=== PATIENT | female | born 1990 | race Caucasian/White ===

== ENCOUNTER 2016-12-05 09:41 | Emergency (ER) | payer MEDICAID, OTHER ==
[2016-12-05 09:44] VITALS: BMI 23.0
[2016-12-05 09:48] VITALS: TEMP 97.6; O2SAT 100
--- NOTE | 2016-12-05 10:50 | ED PDOC ---
Arrival/HPI - General Chief Complaint: Flu-like Symptoms Time Seen by Provider: 12/05/16 10:47 Historian: Patient - History of Present Illness Narrative History of Present Illness (Text): 12/05/16 10:47 This 26 yo female presents to this ED c/o body aches, cough x 2 weeks. She also noted intermittent subjective fever x 1 week. Patient denies urinary symptoms, sob, wheezing, HOLT, rash, sick contact, or vaginal discharge. Time/Duration: Other (2 weeks) Context: Home Past Medical History - Provider Review Nursing Documentation Reviewed: Yes - Past History Past History: Non-Contributing - Infectious Disease Hx of Infectious Diseases: None - Cardiac Hx Cardiac Disorders: No Hx Angina: No - Pulmonary Hx Respiratory Disorders: Yes Hx Asthma: Yes - Neurological Hx Neurological Disorder: No - HEENT Hx HEENT Disorder: No - Renal Hx Renal Disorder: No - Endocrine/Metabolic Hx Endocrine Disorders: No - Hematological/Oncological Hx Blood Disorders: Yes Hx Anemia: Yes - Integumentary Hx Dermatological Disorder: No - Musculoskeletal/Rheumatological Hx Musculoskeletal Disorders: No - Gastrointestinal Hx Gastrointestinal Disorders: No - Genitourinary/Gynecological Hx Genitourinary Disorders: No - Psychiatric Hx Psychophysiologic Disorder: No Hx Substance Use: No - Anesthesia Hx Anesthesia: No Family/Social History - Physician Review Nursing Documentation Reviewed: Yes Family/Social History: No Known Family HX Smoking Status: Former Smoker Hx Alcohol Use: No Hx Substance Use: No Allergies/Home Meds Allergies/Adverse Reactions: Allergies ibuprofen Allergy (Verified 12/05/16 09:44) URTICARIA Penicillins Allergy (Verified 12/05/16 09:44) ANAPHYLAXIS seafood Allergy (Uncoded 12/05/16 09:44) ANAPHYLAXIS Home Medications: Home Meds Medication Instructions Recorded Confirmed Ferrous Sulfate [Ferrous Sulfate] 325 mg PO TID 12/05/16 12/05/16 Review of Systems - Review of Systems Constitutional: Fevers. absent: Fatigue, Weight Change Eyes: Normal. absent: Photophobia, Eye Pain ENT: Normal. absent: Hearing Changes, Sore Throat, Rhinorrhea Respiratory: Cough. absent: SOB, Sputum, Wheezing Cardiovascular: Normal. absent: Chest Pain, Palpitations Gastrointestinal: Normal. absent: Abdominal Pain, Nausea, Vomiting Genitourinary Female: Normal. absent: Dysuria, Frequency, Hematuria, Urine Output Changes, Vaginal Bleeding, Vaginal Discharge Musculoskeletal: Myalgias. absent: Arthralgias, Back Pain, Neck Pain Skin: Normal. absent: Rash Neurological: Normal. absent: Headache, Dizziness, Focal Weakness, Gait Changes , Speech Changes, Facial Droop, Disequilibrium Endocrine: Normal Hemo/Lymphatic: Normal Psychiatric: Normal Physical Exam Vital Signs Temp Pulse Resp BP Pulse Ox 12/05/16 09:45 97.6 F 73 15 108/40 L 100 Temperature: Afebrile Blood Pressure: Normal Pulse: Regular Respiratory Rate: Normal Appearance: Positive for: Well-Appearing, Non-Toxic, Comfortable Pain Distress: None Mental Status: Positive for: Alert and Oriented X 3 - Systems Exam Head: Present: Atraumatic, Normocephalic Pupils: Present: PERRL Extroacular Muscles: Present: EOMI Conjunctiva: Present: Normal Mouth: Present: Moist Mucous Membranes Pharnyx: Present: Normal. No: ERYTHEMA, EXUDATE, TONSILS ENLARGED Neck: Present: Normal Range of Motion Respiratory/Chest: Present: Clear to Auscultation, Good Air Exchange. No: Respiratory Distress, Accessory Muscle Use, Wheezes, Decreased Breath Sounds, Rales, Retracting, Rhonchi, Tachypneic, Tender to Palpation Cardiovascular: Present: Regular Rate and Rhythm, Normal S1, S2. No: Murmurs Abdomen: Present: Normal Bowel Sounds. No: Tenderness, Distention, Peritoneal Signs Back: Present: Normal Inspection. No: CVA Tenderness Upper Extremity: Present: Normal Inspection, Normal ROM, NORMAL PULSES, Neurovascularly Intact, Capillary Refill < 2s. No: Cyanosis, Edema Lower Extremity: Present: Normal Inspection, NORMAL PULSES, Normal ROM, Temperature Abnormalties, Neurovascularly Intact, Capillary Refill < 2 s. No: Edema, CALF TENDERNESS Neurological: Present: GCS=15, CN II-XII Intact, Speech Normal, Motor Func Grossly Intact, Normal Sensory Function, Normal Cerebellar Funct, Gait Normal Skin: Present: Warm, Dry, Normal Color. No: Rashes Psychiatric: Present: Alert, Oriented x 3, Normal Insight, Normal Concentration Medical Decision Making ED Course and Treatment: 12/05/16 10:50 Re-evaluation. Patient feels better. Discussed results and plan with patient who expresses understanding. All questions answered and there is agreement with the plan to discharge home with instructions. Patient stable for discharge. Return if symptoms persist or worsen. Re-evaluation Time: 10:50 Reassessment Condition: Re-examined, Improved Disposition/Present on Arrival - Present on Arrival Any Indicators Present on Arrival: No History of DVT/PE: No History of Uncontrolled Diabetes: No Urinary Catheter: No History of Decub. Ulcer: No History Surgical Site Infection Following: None - Disposition Have Diagnosis and Disposition been Completed?: Yes Diagnosis: Upper respiratory infection Disposition: HOME/ ROUTINE Disposition Time: 10:51 Patient Plan: Discharge Condition: GOOD Discharge Instructions (ExitCare): Upper Respiratory Infection (ED) Additional Instructions: Call private doctor for follow up visit in 1-2 days. Take medication as instructed. return to emergency if symptoms worsen. Prescriptions: Clarithromycin [Biaxin Filmtab] 500 mg PO BID #14 tab Promethazine/Codeine [Codeine/Promethazine 10 MG/5 Ml-6.25 MG/5 Ml] 5 ml PO Q4H PRN #120 ml PRN Reason: Cough Referrals: [facility] [Outside] - Follow up with primary Forms: WORK NOTE
[2016-12-05 11:02] VITALS: BP 111/56; PULSE 69; RESP 18
== END 2016-12-05 11:19 | disposition home or self-care (01) ==
LOC: ED 09:41
DX: J06.9 Acute upper respiratory infection, unspecified (principal); Z87.891 Personal history of nicotine dependence

== ENCOUNTER 2017-06-05 10:42 | Emergency (ER) | payer OTHER ==
[2017-06-05 10:49] VITALS: RESP 18; O2SAT 99
[2017-06-05 10:52] VITALS: BMI 22.6
--- NOTE | 2017-06-05 11:18 | ED PDOC ---
Arrival/HPI - General Chief Complaint: Chest Pain Time Seen by Provider: 06/05/17 11:05 Historian: Patient - History of Present Illness Narrative History of Present Illness (Text): 06/05/17 11:00 Renate Singer is a 27 year old female, whose past medical history includes asthma , anemia, and scoliosis, presents to the emergency department complaining of sharp chest pain that radiates to her back since yesterday. Patient reports recently she has been dealing with mild stress from her job, and admits to mild heavy lifting. Patient denies any cough, nausea, vomiting, abdominal pain, headache, shortness of breath, or other complaints. PMD: Dr. Mayelin Johnson Time/Duration: 24 hours Symptom Onset: Gradual Symptom Course: Unchanged Quality: Other (sharp chest pain ) Activities at Onset: Light Past Medical History - Provider Review Nursing Documentation Reviewed: Yes - Past History Past History: Non-Contributing - Infectious Disease Hx of Infectious Diseases: None - Cardiac Hx Cardiac Disorders: No Hx Angina: No - Pulmonary Hx Respiratory Disorders: Yes Hx Asthma: Yes - Neurological Hx Neurological Disorder: No - HEENT Hx HEENT Disorder: No - Renal Hx Renal Disorder: No - Endocrine/Metabolic Hx Endocrine Disorders: No - Hematological/Oncological Hx Blood Disorders: Yes Hx Anemia: Yes Hx Blood Transfusions: Yes Hx Blood Transfusion Reaction: No - Integumentary Hx Dermatological Disorder: No - Musculoskeletal/Rheumatological Hx Musculoskeletal Disorders: No - Gastrointestinal Hx Gastrointestinal Disorders: No - Genitourinary/Gynecological Hx Genitourinary Disorders: No - Psychiatric Hx Psychophysiologic Disorder: No Hx Substance Use: No - Anesthesia Hx Anesthesia: No Family/Social History - Physician Review Nursing Documentation Reviewed: Yes Family/Social History: Unknown Family HX Smoking Status: Former Smoker Hx Alcohol Use: No Hx Substance Use: No Allergies/Home Meds Allergies/Adverse Reactions: Allergies ibuprofen Allergy (Verified 06/05/17 10:44) URTICARIA Penicillins Allergy (Verified 06/05/17 10:44) ANAPHYLAXIS seafood Allergy (Uncoded 06/05/17 10:44) ANAPHYLAXIS Review of Systems - Review of Systems Constitutional: absent: Fevers Respiratory: absent: SOB, Cough Cardiovascular: Chest Pain (sharp chest pain ) Musculoskeletal: Back Pain (left sided) Neurological: absent: Headache Physical Exam Vital Signs Reviewed: Yes Vital Signs Temp Pulse Resp BP Pulse Ox 06/05/17 12:23 98.5 F 69 18 101/68 99 06/05/17 12:16 69 18 101/68 99 06/05/17 10:47 97.9 F 72 18 98/64 L 99 Temperature: Afebrile Blood Pressure: Hypertensive Pulse: Regular Respiratory Rate: Normal Appearance: Positive for: Well-Appearing, Non-Toxic, Comfortable Pain Distress: None Mental Status: Positive for: Alert and Oriented X 3 - Systems Exam Head: Present: Atraumatic, Normocephalic Pupils: Present: PERRL Extroacular Muscles: Present: EOMI Conjunctiva: Present: Normal Mouth: Present: Moist Mucous Membranes Neck: Present: Normal Range of Motion. No: MIDLINE TENDERNESS, JVD Respiratory/Chest: Present: Clear to Auscultation, Good Air Exchange, Tender to Palpation (anterior chest wall tenderness). No: Respiratory Distress, Accessory Muscle Use Cardiovascular: Present: Regular Rate and Rhythm, Normal S1, S2. No: Murmurs Abdomen: Present: Normal Bowel Sounds. No: Tenderness, Distention, Peritoneal Signs Back: Present: Paraspinal Tenderness (paraspinal thoracic tenderness). No: CVA Tenderness, Midline Tenderness Upper Extremity: Present: Normal Inspection. No: Cyanosis, Edema Lower Extremity: Present: Normal Inspection. No: Edema Neurological: Present: GCS=15, CN II-XII Intact, Speech Normal Skin: Present: Warm, Dry, Normal Color. No: Rashes Psychiatric: Present: Alert, Oriented x 3, Normal Insight, Normal Concentration Medical Decision Making ED Course and Treatment: 06/05/17 Impression: 27 year old female with anterior chest wall tenderness and paraspinal thoracic tenderness Differential Diagnosis included but are not limited to: costochondritis Plan: -- EKG -- Chest X-ray -- Flexeril vs. Tylenol -- Reassess and disposition Progress Notes: EKG: Ordered, reviewed, and independently interpreted the EKG. Rate : 61 BPM Rhythm : NSR Interpretation : No ST-segment elevations or depressions, no T-wave inversions, normal intervals. 06/05/17 12:15 Reevaluation: Chest X-ray: NAD. Normal. On reevaluation the patient feels better and is in no acute distress. I have discussed the results and plan with the patient, who expresses understanding. Patient given the opportunity to ask question, all questions were answered and there is agreement with the plan to discharge the patient home. Patient is stable for discharge. Patient states she will follow up with PMD in 1-2 days or return if symptoms persist/worsen or new concerning symptoms arise. - RAD Interpretation Radiology Orders: 06/05/17 11:13 CHEST TWO VIEWS (PA/LAT) [RAD] Stat Staff Technologist: ED Physician - EKG Interpretation Interpreted by ED Physician: Yes Type: 12 lead EKG - Medication Orders Current Medication Orders: Discontinued Medications Acetaminophen (Tylenol 325mg Tab) 650 mg PO STAT STA Stop: 06/05/17 11:15 Last Admin: 06/05/17 11:22 Dose: 650 mg MAR Pain/Vitals Document 06/05/17 11:22 IT (Rec: 06/05/17 11:23 IT [id number]) Pain Reassessment Is This A Pain ReAssessment? No Sleep Is patient sleeping during reassessment? No Presence of Pain Presence of Pain Yes Pain Scale Used Pain Scale Used Numeric Location Left, Right or Bilateral Left Pain Location Body Site chest, shoulder, neck Cyclobenzaprine HCl (Flexeril) 5 mg PO STAT STA Stop: 06/05/17 11:14 Last Admin: 06/05/17 11:22 Dose: 5 mg - Scribe Statement The provider has reviewed the documentation as recorded by the Mone Mccann Provider Scribe Attestation: All medical record entries made by the Scribe were at my direction and personally dictated by me. I have reviewed the chart and agree that the record accurately reflects my personal performance of the history, physical exam, medical decision making, and the department course for this patient. I have also personally directed, reviewed, and agree with the discharge instructions and disposition. Disposition/Present on Arrival - Present on Arrival Any Indicators Present on Arrival: No History of DVT/PE: No History of Uncontrolled Diabetes: No Urinary Catheter: No History of Decub. Ulcer: No History Surgical Site Infection Following: None - Disposition Have Diagnosis and Disposition been Completed?: Yes Diagnosis: Chest pain Disposition: HOME/ ROUTINE Disposition Time: 12:15 Patient Plan: Discharge Condition: IMPROVED Discharge Instructions (ExitCare): Chest Pain (ED) Additional Instructions: Ms Singer, thank you for letting us take care of you today. Your provider was Dr. Menjivar. You were treated for Chest Pain. The emergency medical care you received today was directed at your acute symptoms. If you were prescribed any medication, please fill it and take as directed. It may take several days for your symptoms to resolve. Return to the Emergency Department if your symptoms worsen, do not improve, or if you have any other problems. Please contact your doctor or call one of the physicians/clinics you have been referred to that are listed on the Patient Visit Information form that is included in your discharge packet. Bring any paperwork you were given at discharge with you along with any medications you are taking to your follow up visit. Our treatment cannot replace ongoing medical care by a primary care provider (PCP) outside of the emergency department. Thank you for allowing the [facility] team to be part of your care today. If you had an X-Ray or CT scan: A Radiologist will review the ED reading if any change in treatment is needed we will contact you. If you had a blood, urine, or wound culture: It will take several days for the results, if any change in treatment is needed we will contact you. If you had an STI test: It will take 48 hours for the results. Please call after 1 week if you have not heard back. Prescriptions: Cyclobenzaprine HCl 5 mg PO Q8 PRN #20 tablet PRN Reason: Muscle Spasm Referrals: Huseyin Johnson MD [Primary Care Provider] - Follow up with primary Forms: [employer] (Persian), WORK NOTE
[2017-06-05 12:16] VITALS: BP 101/68; PULSE 69
[2017-06-05 12:25] VITALS: TEMP 98.5
--- NOTE | 2017-06-05 13:14 | RAD ---
HISTORY: pain r/o ptx r/o pna COMPARISON: No prior. TECHNIQUE: Chest PA and lateral FINDINGS: LUNGS: No active pulmonary disease. PLEURA: No significant pleural effusion identified. No pneumothorax apparent. CARDIOVASCULAR: Normal. OSSEOUS STRUCTURES: No significant abnormalities. VISUALIZED UPPER ABDOMEN: Normal. OTHER FINDINGS: None. IMPRESSION: No active disease.
--- NOTE | 2017-06-06 08:16 | CARD ---
APPROVED REPORT EKG Measurement Heart [id number] <Conclusion> Normal sinus rhythm Normal ECG
== END 2017-06-05 12:24 | disposition home or self-care (01) ==
LOC: ED 10:42
DX: R07.9 Chest pain, unspecified (principal); J45.909 Unspecified asthma, uncomplicated; Z87.891 Personal history of nicotine dependence

== ENCOUNTER 2018-03-18 09:50 | Emergency (ER) | payer MEDICAID, OTHER ==
[2018-03-18 10:04] VITALS: RESP 18; TEMP 98.5; O2SAT 99; BMI 22.2
[2018-03-18] MEDS ORDERED: Sodium Chloride 0.9% 1,000 ML IV STA (10:07)
[2018-03-18 10:22] LABS: URINE BILIRUBIN NEGATIVE (NEGATIVE); URINE BLOOD NEGATIVE (NEGATIVE); URINE GLUCOSE (UA) NEGATIVE (NEGATIVE); URINE LEUKOCYTE ESTERASE TRACE Leu/uL (NEGATIVE); URINE PROTEIN NEGATIVE mg/dL (<30 mg/dL); URINE UROBILINOGEN 0.2 E.U./dL (<1 E.U./dL)
[2018-03-18 10:24] LABS: URINE APPEARANCE CLEAR (CLEAR); URINE COLOR YELLOW (YELLOW)
[2018-03-18 10:39] LABS: URINE BACTERIA FEW (NEG); URINE RBC NEGATIVE /hpf (0-2); URINE WBC 0 - 2 /hpf (0-6)
--- NOTE | 2018-03-18 10:40 | ED PDOC ---
Arrival/HPI - History of Present Illness Time/Duration: > month Symptom Course: Unchanged Activities at Onset: Rest Context: Home <Bobby Torres - Last Filed: 03/18/18 11:48> <Justin Jama DO - Last Filed: 03/18/18 17:17> - General Time Seen by Provider: 03/18/18 09:54 - History of Present Illness Narrative History of Present Illness (Text): 03/18/18 10:35 This is a 28 year old female with PMH of scoliosis, asthma and anemia presenting to the ED for one month history of dizziness, weakness, hair loss, sore throat, difficulty swallowing, and bones hurting. Patient saw her PMD one month ago for symptoms, and thyroid tests at that time was normal. She was scheduled for repeat thyroid blood work today, but came into the ED due to worsening symptoms today. Denies chest pain, fevers, nausea, vomiting, abdominal pain, sick contacts at home and recent travel. (Bobby Torres) Past Medical History - Provider Review Nursing Documentation Reviewed: Yes - Past History Past History: Non-Contributing - Infectious Disease Hx of Infectious Diseases: None - Reproductive Menopause: No - Cardiac Hx Cardiac Disorders: No Hx Angina: No - Pulmonary Hx Respiratory Disorders: Yes Hx Asthma: Yes - Neurological Hx Neurological Disorder: No - HEENT Hx HEENT Disorder: No - Renal Hx Renal Disorder: No - Endocrine/Metabolic Hx Endocrine Disorders: No - Hematological/Oncological Hx Blood Disorders: Yes Hx Anemia: Yes Hx Blood Transfusions: Yes Hx Blood Transfusion Reaction: No - Integumentary Hx Dermatological Disorder: No - Musculoskeletal/Rheumatological Hx Musculoskeletal Disorders: No - Gastrointestinal Hx Gastrointestinal Disorders: No - Genitourinary/Gynecological Hx Genitourinary Disorders: No - Psychiatric Hx Psychophysiologic Disorder: No Hx Substance Use: No - Anesthesia Hx Anesthesia: No <Bobby Torres - Last Filed: 03/18/18 11:48> Family/Social History - Physician Review Nursing Documentation Reviewed: Yes Family/Social History: Unknown Family HX Smoking Status: Former Smoker Hx Alcohol Use: No Hx Substance Use: No <Bobby Torres - Last Filed: 03/18/18 11:48> Allergies/Home Meds <Bobby Torres - Last Filed: 03/18/18 11:48> <Justin Jama DO - Last Filed: 03/18/18 17:17> Allergies/Adverse Reactions: Allergies ibuprofen Allergy (Verified 03/18/18 10:04) URTICARIA Penicillins Allergy (Verified 03/18/18 10:04) ANAPHYLAXIS seafood Allergy (Uncoded 03/18/18 10:04) ANAPHYLAXIS Review of Systems - Physician Review All systems were reviewed & negative as marked: Yes - Review of Systems Constitutional: Normal. absent: Weight Change, Fevers Eyes: Normal. absent: Photophobia, Eye Pain ENT: Normal, Sore Throat. absent: Hearing Changes Respiratory: Normal. absent: SOB Cardiovascular: Normal. absent: Chest Pain, Palpitations Gastrointestinal: Normal. absent: Abdominal Pain Genitourinary Female: Normal Musculoskeletal: Normal, Other (bone pain). absent: Arthralgias, Joint Swelling Skin: Normal Neurological: Dizziness, Other (weakness). absent: Focal Weakness, Facial Droop Endocrine: Normal Hemo/Lymphatic: Normal Psychiatric: Normal <Bobby Torres - Last Filed: 03/18/18 11:48> Physical Exam Temperature: Afebrile Blood Pressure: Normal Pulse: Regular Respiratory Rate: Normal Appearance: Positive for: Well-Appearing, Non-Toxic, Comfortable Pain Distress: None Mental Status: Positive for: Alert and Oriented X 3 - Systems Exam Head: Present: Atraumatic, Normocephalic Pupils: Present: PERRL Extroacular Muscles: Present: EOMI Conjunctiva: Present: Normal Mouth: Present: Moist Mucous Membranes Neck: Present: Normal Range of Motion, Trachea Midline Respiratory/Chest: Present: Clear to Auscultation, Good Air Exchange. No: Respiratory Distress, Accessory Muscle Use Cardiovascular: Present: Normal S1, S2, Peripheal Pulses Present, Bradycardic. No: Murmurs, Irregular Rhythm Abdomen: Present: Normal Bowel Sounds. No: Tenderness, Distention, Peritoneal Signs Back: Present: Normal Inspection Upper Extremity: Present: Normal Inspection. No: Cyanosis, Edema Lower Extremity: Present: Normal Inspection. No: Edema Neurological: Present: Speech Normal, Motor Func Grossly Intact, Normal Sensory Function Skin: Present: Warm, Dry, Normal Color. No: Rashes Psychiatric: Present: Alert, Oriented x 3, Normal Insight, Normal Concentration <Bobby Torres Last Filed: 03/18/18 11:48> Vital Signs Temp Pulse Resp BP Pulse Ox 03/18/18 11:16 60 18 105/61 99 03/18/18 09:59 98.5 F 80 18 95/63 L 99 Medical Decision Making <Bobby Torres - Last Filed: 03/18/18 11:48> <Justin Jama DO - Last Filed: 03/18/18 17:17> ED Course and Treatment: 03/18/18 10:50 This is a 28 year old female with PMH of scoliosis, anemia and asthma presenting to the ED today for bone pain, dizziness, weakness, and loss of hair for one month. Differential: anemia vs. thyroid abnormality Plan -CBC, CMP -Thyroid - -EKG, troponin -U/A, drug screen Progress: EKG: rate of 52, DC of 138ms, QRS of 80ms, sinus bradycardia. 03/18/18 10:53 (Bobby Torres) Attending followup: Patient feeling better. Labs and imaging reviewed. Patient to be discharged with Rx and followup instructions. (Justin Jama DO) - Lab Interpretations Lab Results: 03/18/18 10:30 03/18/18 10:30 Lab Results 03/18/18 10:30: Total T3 1.30, TSH 3rd Generation 0.78 03/18/18 10:30: Urine Opiates Screen Negative, Urine Methadone Screen Negative, Ur Barbiturates Screen Negative, Ur Phencyclidine Scrn Negative, Ur Amphetamines Screen Negative, U Benzodiazepines Scrn Negative, U Oth Cocaine Metabols Negative, U Cannabinoids Screen Negative 03/18/18 10:30: Sodium 142, Potassium 4.1, Chloride 108 H, Carbon Dioxide 22, Anion Gap 17, BUN 13, Creatinine 0.7, Est GFR ( Amer) > 60, Est GFR (Non- Af Amer) > 60, Random Glucose 83, Calcium 9.0, Magnesium 2.0, Total Bilirubin 0.2, AST 21, ALT 16, Alkaline Phosphatase 69, Lactate Dehydrogenase 395, Total Creatine Kinase 90, Troponin I < 0.01, Total Protein 6.9, Albumin 4.2, Globulin 2.7, Albumin/Globulin Ratio 1.5 03/18/18 10:30: WBC 4.2 L, RBC 4.12, Hgb 12.3, Hct 36.1, MCV 87.6, MCH 29.9, MCHC 34.1, RDW 13.7, Plt Count 274, MPV 9.5, Gran % 42.8 L, Lymph % (Auto) 42.3 H, Prowers % (Auto) 10.3 H, Eos % (Auto) 3.6, Baso % (Auto) 1.0, Gran # 1.78, Lymph # (Auto) 1.8, Prowers # (Auto) 0.4, Eos # (Auto) 0.2, Baso # (Auto) 0.04 03/18/18 10:16: Urine Color Yellow, Urine Appearance Clear, Urine pH 6.0, Ur Specific Lillian 1.025, Urine Protein Negative, Urine Glucose (UA) Negative, Urine Ketones Negative, Urine Blood Negative, Urine Nitrate Negative, Urine Bilirubin Negative, Urine Urobilinogen 0.2, Ur Leukocyte Esterase Trace H, Urine RBC Negative, Urine WBC 0 - 2, Ur Epithelial Cells 6 - 8, Urine Bacteria Few - Medication Orders Current Medication Orders: Discontinued Medications Sodium Chloride (Sodium Chloride 0.9%) 1,000 mls @ 999 mls/hr IV .Q1H1M STA Stop: 03/18/18 11:07 Last Admin: 03/18/18 10:25 Dose: 999 mls/hr eMAR Start Stop Document 03/18/18 10:25 LULU (Rec: 03/18/18 10:32 LULU [id number]) Intravenous Solution Start Date 03/18/18 Start Time 10:30 End Date 03/18/18 End time 11:30 Total Infusion Time 60 - PA / BAG SORTER / Resident Statement ORA has reviewed & agrees with the documentation as recorded. ORA has examined the patient and agrees with the treatment plan. <Bobby Torres - Last Filed: 03/18/18 11:48> Disposition/Present on Arrival - Present on Arrival Any Indicators Present on Arrival: No History of DVT/PE: No History of Uncontrolled Diabetes: No Urinary Catheter: No History of Decub. Ulcer: No History Surgical Site Infection Following: None - Disposition Have Diagnosis and Disposition been Completed?: Yes Disposition Time: 12:00 Patient Plan: Discharge <Bobby Torres - Last Filed: 03/18/18 11:48> - Disposition Disposition Time: 11:40 <Justin Jama DO - Last Filed: 03/18/18 17:17> - Disposition Diagnosis: Generalized weakness Disposition: HOME/ ROUTINE Condition: GOOD Discharge Instructions (ExitCare): Weakness (ED) Additional Instructions: AYSHA WATKINS, thank you for letting us take care of you today. The emergency medical care you received today was directed at your acute symptoms. If you were prescribed any medication, please fill it and take as directed. It may take several days for your symptoms to resolve. Return to the Emergency Department if your symptoms worsen, do not improve, or if you have any other problems. Please contact your doctor or call one of the physicians/clinics you have been referred to that are listed on the Patient Visit Information form that is included in your discharge packet. Bring any paperwork you were given at discharge with you along with any medications you are taking to your follow up visit. Our treatment cannot replace ongoing medical care by a primary care provider outside of the emergency department. Thank you for allowing the [facility] team to be part of your care today. Follow up with your primary doctor this week for re-evaluation and further management. Referrals: Huseyin Johnson MD [Primary Care Provider] - Follow up with primary Forms: WORK NOTE
[2018-03-18 10:53] LABS: BASO # 0.04 K/mm3 (0.0-2.0); EOS # 0.2 (0.0-0.7); EOS % 3.6 % (1.5-5.0); GRAN # 1.78 (1.4-6.5); GRAN % 42.8 % (50.0-68.0); HEMOGLOBIN 12.3 g/dL (12.0-16.0); LYMPH # 1.8 (1.2-3.4); LYMPH % 42.3 % (22.0-35.0); MEAN CELL VOLUME 87.6 fl (80.0-105.0); MEAN CORPUSCULAR HEMOGLOBIN 29.9 pg (25.0-35.0); MEAN CORPUSCULAR HGB CONC 34.1 g/dl (31.0-37.0); MEAN PLATELET VOLUME 9.5 fl (7.0-11.0); MONO # 0.4 (0.1-0.6); MONO % 10.3 % (1.0-6.0); RBC 4.12 10^6/uL (3.5-6.1); RED CELL DISTRIBUTION WIDTH 13.7 % (11.5-14.5); WHITE BLOOD COUNT 4.2 10^3/ul (4.5-11.0)
[2018-03-18 10:58] LABS: ALB/GLOB RATIO 1.5 (1.1-1.8); ALBUMIN 4.2 g/dL (3.0-4.8); ALT/SGPT 16 U/L (7-56); AST/SGOT 21 U/L (14-36); BLOOD UREA NITROGEN 13 mg/dL (7-21); GFR AFRICAN-AMERICAN > 60; GFR NON-AFRICAN AMERICAN > 60
[2018-03-18 11:08] LABS: BARBITURATES, UR NEGATIVE (NEGATIVE); BENZODIAZEPINES, UR NEGATIVE (NEGATIVE); OPIATES, UR NEGATIVE (NEGATIVE); PHENCYCLIDINE, UR NEGATIVE (NEGATIVE)
[2018-03-18 11:15] LABS: TROPONIN I < 0.01 ng/mL
[2018-03-18 11:17] VITALS: BP 105/61; PULSE 60
[2018-03-18 11:39] LABS: T3 1.3 ng/mL (0.97-1.69)
--- NOTE | 2018-03-18 16:36 | CARD ---
APPROVED REPORT Date of service: 03/18/2018 EKG Measurement Heart [id number] <Conclusion> Sinus bradycardia Otherwise normal ECG
== END 2018-03-18 12:05 | disposition home or self-care (01) ==
LOC: ED 09:50
DX: R53.1 Weakness (principal); Z87.891 Personal history of nicotine dependence
CPT/HCPCS: 80053; 80324; 80345; 80346; 80349; 80353; 80358; 80361; 81001; 82550; 83615; 83735; 83992; 84443; 84480; 84484; 85025; 87086; 93005; 96360; 99283; J7030

== ENCOUNTER 2018-06-19 19:38 | Emergency (ER) | payer MEDICAID ==
[2018-06-19 19:41] VITALS: BMI 22.6
[2018-06-19] MEDS ORDERED: DiphenhydrAMINE 50 mg/ml Inj IVP STA (19:48)
[2018-06-19] MEDS ORDERED: Sodium Chloride 0.9% 1,000 ML IV STA (19:48)
--- NOTE | 2018-06-19 19:51 | ED PDOC ---
Arrival/HPI - General Time Seen by Provider: 06/19/18 19:48 Historian: Patient - History of Present Illness Narrative History of Present Illness (Text): 06/19/18 19:48 28 year old female, with past medical history of scoliosis, asthma and anemia, presents to the Emergency Department via EMS complaining of coughing, itchiness to eyes and throat x 2 hours. Patient states she was walking outside when she suddenly began coughing and experienced difficulty breathing associated with itchiness hives prompting her to present to the Emergency Department for medical evaluation of allergic reaction. Patient denies any associated chest pain or shortness of breath. Patient denies any fever, chills, nausea, vomiting, diarrhea, abdominal pain, neck pain, back pain, headache, dizziness or any other complaints. Time/Duration: Prior to Arrival Symptom Onset: Sudden Symptom Course: Unchanged Activities at Onset: Light Context: Street Past Medical History - Provider Review Nursing Documentation Reviewed: Yes - Past History Past History: Non-Contributing - Infectious Disease Hx of Infectious Diseases: None - Cardiac Hx Cardiac Disorders: No Hx Angina: No - Pulmonary Hx Respiratory Disorders: Yes Hx Asthma: Yes - Neurological Hx Neurological Disorder: No - HEENT Hx HEENT Disorder: No - Renal Hx Renal Disorder: No - Endocrine/Metabolic Hx Endocrine Disorders: No - Hematological/Oncological Hx Blood Disorders: Yes Hx Anemia: Yes Hx Blood Transfusions: Yes Hx Blood Transfusion Reaction: No - Integumentary Hx Dermatological Disorder: No - Musculoskeletal/Rheumatological Hx Musculoskeletal Disorders: No - Gastrointestinal Hx Gastrointestinal Disorders: No - Genitourinary/Gynecological Hx Genitourinary Disorders: No - Psychiatric Hx Psychophysiologic Disorder: No Hx Substance Use: No - Anesthesia Hx Anesthesia: No Family/Social History - Physician Review Nursing Documentation Reviewed: Yes Family/Social History: Unknown Family HX Smoking Status: Former Smoker Hx Alcohol Use: No Hx Substance Use: No Allergies/Home Meds Allergies/Adverse Reactions: Allergies ibuprofen Allergy (Verified 03/18/18 10:04) URTICARIA Penicillins Allergy (Verified 03/18/18 10:04) ANAPHYLAXIS seafood Allergy (Uncoded 03/18/18 10:04) ANAPHYLAXIS Review of Systems - Review of Systems Constitutional: absent: Fatigue, Fevers Eyes: Other (+eye itching). absent: Vision Changes ENT: Other (+throat itching). absent: Hearing Changes Respiratory: Cough. absent: SOB Cardiovascular: absent: Chest Pain Gastrointestinal: absent: Abdominal Pain, Nausea, Vomiting Musculoskeletal: absent: Arthralgias, Back Pain Skin: Rash, Pruritis Neurological: absent: Headache, Dizziness Psychiatric: absent: Anxiety, Depression, Suicidal Ideation Physical Exam Vital Signs Reviewed: Yes Temperature: Afebrile Blood Pressure: Normal Pulse: Regular Respiratory Rate: Normal Appearance: Positive for: Well-Appearing, Non-Toxic, Comfortable Pain Distress: None Mental Status: Positive for: Alert and Oriented X 3 - Systems Exam Head: Present: Atraumatic, Normocephalic Pupils: Present: PERRL Extroacular Muscles: Present: EOMI Conjunctiva: Present: Normal, Other (+bilateral conjuntivitis) Ears: Present: NORMAL TM, Normal Canal. No: Erythema Mouth: Present: Moist Mucous Membranes. No: Dry, Drooling Pharnyx: Present: Normal. No: ERYTHEMA, EXUDATE, TONSILS ENLARGED, Peritonsilar Swelling, Uvular Deviation, Muffled/Hoarse Voice, Strider, Soft Palate/Uvular Edema Nose (External): Present: Atraumatic. No: Abrasion, Contusion, Laceration Nose (Internal): Present: Normal Inspection, No Active Bleeding. No: Rhinorrhea, Septal Deviation, Septal Hematoma, Epistaxis Neck: Present: Normal Range of Motion Respiratory/Chest: Present: Clear to Auscultation, Good Air Exchange. No: Respiratory Distress, Accessory Muscle Use Cardiovascular: Present: Regular Rate and Rhythm, Normal S1, S2. No: Murmurs Abdomen: Present: Normal Bowel Sounds. No: Tenderness, Distention, Peritoneal Signs, Rebound, Guarding Back: Present: Normal Inspection. No: CVA Tenderness, Midline Tenderness, Paraspinal Tenderness, Pain with Leg Raise, Decubitus Ulcer Upper Extremity: Present: Normal Inspection. No: Cyanosis, Edema Lower Extremity: Present: Normal Inspection. No: Edema Neurological: Present: GCS=15, CN II-XII Intact, Speech Normal, Motor Func Grossly Intact, Gait Normal, Memory Normal Skin: Present: Warm, Dry, Rashes (hives generalized), Normal Color Psychiatric: Present: Alert, Oriented x 3, Normal Insight, Normal Concentration Medical Decision Making ED Course and Treatment: 06/19/18 19:51 -IV benadryl/pepcid/solumedrol -Observe and reassess 06/19/18 21:12 -Urine hcg is negative -Itching, hives and conjunctivitis resolved, she is feeling completely relief, request to be discharged home. -Discharge home with benadryl, pepcid, prednisone, avoid contact with possible allergen, follow up with your own pmd and talent director within 2 days, return to the ER for any new or worsening signs or symptoms. - PA / [employer] / Resident Statement / has reviewed & agrees with the documentation as recorded. - Scribe Statement The provider has reviewed the documentation as recorded by the Scribe Melody Puentes. All medical record entries made by the Zebibe were at my direction and personally dictated by me. I have reviewed the chart and agree that the record accurately reflects my personal performance of the history, physical exam, medical decision making, and the department course for this patient. I have also personally directed, reviewed, and agree with the discharge instructions and disposition. Disposition/Present on Arrival - Present on Arrival Any Indicators Present on Arrival: No History of DVT/PE: No History of Uncontrolled Diabetes: No Urinary Catheter: No History of Decub. Ulcer: No History Surgical Site Infection Following: None - Disposition Have Diagnosis and Disposition been Completed?: Yes Diagnosis: Allergic reaction Disposition: HOME/ ROUTINE Disposition Time: 21:14 Patient Plan: Discharge Condition: IMPROVED Additional Instructions: -Discharge home with benadryl, pepcid, prednisone, avoid contact with possible allergen, follow up with your own pmd and talent director within 2 days, return to the ER for any new or worsening signs or symptoms. Prescriptions: DiphenhydrAMINE [Benadryl] 50 mg PO QID PRN #25 cap PRN Reason: Other Famotidine [Pepcid] 20 mg PO BID #10 tab Prednisone 50 mg PO DAILY #5 tab Referrals: Hossein Vazquez DO [Doctor Osteopathy] - Follow up with primary Gray Ortiz MD [Staff Provider] - Follow up with primary [facility] [Outside] - Follow up with primary Forms: WORK NOTE
[2018-06-19 21:06] VITALS: BP 100/61; PULSE 69; RESP 18; TEMP 98; O2SAT 98
== END 2018-06-19 21:55 | disposition home or self-care (01) ==
LOC: ED 19:38
DX: T78.49XA Other allergy, initial encounter (principal); X58.XXXA Exposure to other specified factors, initial encounter
CPT/HCPCS: 96361; 96374; 96375; 99283; J1200; J2930; J7030